=== PATIENT | female | born 1940 | race Caucasian/White ===

== ENCOUNTER 2017-08-26 08:03 | Inpatient (IN) ==
[2017-08-12 12:52] LABS: Basophils # 0.1 10*3/uL (0.0-0.2); Basophils % 0.8 % (0.0-0.8); Eosinophils # 0.1 10*3/uL (0.0-0.87); Eosinophils % 0.9 % (0.00-10.9); Hematocrit 41.5 VOL% (35.7-47.0); Hemoglobin 13.5 GM/DL (12.0-16.0); Immature Granulocytes % 0.6 %; Immature Granulocytes Absolute 0.05 #; Lymphocytes # 3.2 10*3/uL (1.4-4.0); Lymphocytes % 36.6 % (21.3-54.2); Mean Corpuscular HGB Conc 32.5 GM/DL (32-36); Mean Corpuscular Hemoglobin 30 PG (27-34); Mean Corpuscular Volume 91.6 FL (87-102); Mean Platelet Volume 10.5 FL (9.6-12.0); Monocytes # 0.8 10*3/uL (0.11-0.8); Monocytes % 8.8 % (1.7-12.7); Neutrophils # 4.5 10*3/uL (1.4-7.4); Neutrophils % 52.3 % (38.7-73.9); Platelet Count 243 T/CUMM (130-400); Red Blood Count 4.53 MC/CUMM (3.8-5.5); Red Cell Distribution Width 14.3 % (9.3-17.3); White Blood Count 8.7 T/CUMM (4-12)
[2017-08-12 13:19] LABS: Bilirubin,Total 0.5 MG/DL (0.2-1.0); Calcium 10.2 MG/DL (8.5-10.1); Osmolality,Calculated 275.5 MOS/KG (273-304); Potassium 3.6 MMOL/L (3.5-5.1); Total Protein 7.6 G/DL (6.4-8.3)
[~2017-08-26 08:03] MED LIST: cefTRIAXone 1,000 MG in SYRINGE 1 EACH IV ONE
[2017-08-26] MEDS ORDERED: SCOPOLAMINE 1.5 MG PATCH TRANSDERM ONE ×2 (08:42→09:37)
[2017-08-26] MEDS ORDERED: FAMOTIDINE 20 MG TABLET PO ONE (08:42)
[2017-08-26] MEDS ORDERED: DIAZEPAM 5 MG TABLET PO ONE (08:42)
[2017-08-26] MEDS ORDERED: LACTATED RINGERS 1,000 ML IV SCH (09:00)
[2017-08-26] MEDS ORDERED: DIAZEPAM 5 MG TABLET ONE (09:37)
[2017-08-26] MEDS ORDERED: cefTRIAXone 1,000 MG VIAL ONE (09:37)
[2017-08-26] MEDS ORDERED: FAMOTIDINE 20 MG TABLET ONE (09:37)
[2017-08-26] MEDS: SODIUM CHLORIDE 0.9% 1,000 ML IV SCH ×2 (10:10→20:55)
[2017-08-26] MEDS ORDERED: BUPIVACAINE 0.5% 50 ML VIAL ONE (15:17)
[2017-08-26] MEDS ORDERED: ONDANSETRON 4 MG/2 ML VIAL IV PRN ×2 (15:18→15:40)
[2017-08-26] MEDS ORDERED: LACTULOSE 20 GM/30 ML UDCUP PO PRN (15:18)
[2017-08-26] MEDS ORDERED: PROMETHAZINE 25 MG/1 ML VIAL IM PRN (15:18)
[2017-08-26] MEDS ORDERED: MORPHINE 10 MG/1 ML VIAL IV PRN (15:18)
[2017-08-26 15:22] LABS: Apearance,Urine CLEAR (Clear); Bilirubin,Urine Negative (Negative); Blood, Urine Negative (Negative); Glucose,Urine (UA) Negative (Negative); Ketones,Urine 5 mg/dL (Negative); Nitrite,Urine Negative (Negative); Protein,Urine Negative; RBC,Urine <1 /HPF (0-4); Urine Color Straw (Yellow); Urine Specific Gravity 1.005 (1.001-1.035); Urine Urobilinogen < 2.0 EU/DL (0.2-1.0)
[2017-08-26] MEDS ORDERED: diphenhydrAMINE 50 MG/1 ML VIAL IV PRN (15:22)
[2017-08-26] MEDS ORDERED: SIMETHICONE CHEW 80 MG TABLET PO PRN (15:23)
[2017-08-26] MEDS ORDERED: MORPHINE 10 MG/1 ML VIAL ONE (15:40)
[2017-08-26] MEDS ORDERED: ONDANSETRON 4 MG/2 ML VIAL ONE ×2 (15:40→15:49)
[2017-08-26] MEDS: MORPHINE 10 MG/1 ML VIAL IV PRN ×3 (15:45→15:55)
[2017-08-26] MEDS ORDERED: SEVOFLURANE 1 UNIT/15 MINUTE INH ONE (15:47)
[2017-08-26] MEDS ORDERED: PROPOFOL 200 MG/20 ML VIAL IV ONE (15:47)
[2017-08-26] MEDS ORDERED: MIDAZOLAM 2 MG/2 ML VIAL ONE (15:48)
[2017-08-26] MEDS ORDERED: SUFentanil 50 MCG/ML AMP ONE (15:48)
[2017-08-26] MEDS ORDERED: ROCURONIUM 100 MG/10 ML VIAL IV ONE (15:49)
[2017-08-26] MEDS ORDERED: SODIUM CHLORIDE 0.9% 1,000 ML IV ONE (15:49)
[2017-08-26] MEDS ORDERED: PHENYLEPHRINE 1 MG/10 ML SYRINGE IV ONE (15:49)
[2017-08-26] MEDS ORDERED: DEXAMETHASONE 10 MG/1 ML VIAL ONE (15:49)
[2017-08-26] MEDS ORDERED: HYDROmorphone 2 MG/1 ML VIAL ONE (15:59)
[2017-08-26] MEDS: HYDROmorphone 2 MG/1 ML VIAL IV PRN ×2 (16:00→16:05)
[2017-08-26 17:57] LABS: Basophils % 0.3 % (0.0-0.8); Hematocrit 36.1 VOL% (35.7-47.0); Hemoglobin 11.8 GM/DL (12.0-16.0); Immature Granulocytes % 0.5 %; Immature Granulocytes Absolute 0.07 #; Lymphocytes # 0.7 10*3/uL (1.4-4.0); Lymphocytes % 4.7 % (21.3-54.2); Mean Corpuscular HGB Conc 32.7 GM/DL (32-36); Mean Corpuscular Hemoglobin 30 PG (27-34); Mean Corpuscular Volume 92.6 FL (87-102); Mean Platelet Volume 10.4 FL (9.6-12.0); Monocytes # 0.7 10*3/uL (0.11-0.8); Monocytes % 4.7 % (1.7-12.7); Neutrophils # 12.9 10*3/uL (1.4-7.4); Neutrophils % 89.8 % (38.7-73.9); Platelet Count 221 T/CUMM (130-400); Red Cell Distribution Width 13.5 % (9.3-17.3); White Blood Count 14.4 T/CUMM (4-12)
[2017-08-26 18:21] LABS: Calcium 8.4 MG/DL (8.5-10.1); Osmolality,Calculated 286.1 MOS/KG (273-304); Potassium 3.6 MMOL/L (3.5-5.1)
[2017-08-26] MEDS: DOCUSATE SODIUM 100 MG CAPSULE PO SCH (20:43)
[2017-08-26] MEDS: ACETAMINOPHEN 325 MG TABLET PO SCH ×2 (20:48→20:54)
[2017-08-26 21:41] LABS: Lymphocytes 6 % (20-55); Segmented Neutrophils 93 % (50-85); Total Cells Counted 100
[2017-08-26 21:42] LABS: Hypochromasia 1+; Platelet Estimate Adequate; Tear Drop Cells Slight
[2017-08-26] MEDS: hydrALAZINE 25 MG TABLET PO SCH (22:43)
[2017-08-27] MEDS: ACETAMINOPHEN 325 MG TABLET PO SCH ×4 (04:58→20:32)
[2017-08-27] MEDS: SODIUM CHLORIDE 0.9% 1,000 ML IV SCH ×4 (05:07→20:31)
[2017-08-27 05:52] LABS: Basophils % 0.4 % (0.0-0.8); Eosinophils % 0.2 % (0.00-10.9); Hematocrit 35.3 VOL% (35.7-47.0); Hemoglobin 11.3 GM/DL (12.0-16.0); Immature Granulocytes % 0.4 %; Immature Granulocytes Absolute 0.04 #; Lymphocytes # 1.9 10*3/uL (1.4-4.0); Lymphocytes % 16.6 % (21.3-54.2); Mean Corpuscular Hemoglobin 30 PG (27-34); Mean Corpuscular Volume 93.6 FL (87-102); Mean Platelet Volume 10.3 FL (9.6-12.0); Monocytes % 8.6 % (1.7-12.7); Neutrophils # 8.3 10*3/uL (1.4-7.4); Neutrophils % 73.8 % (38.7-73.9); Platelet Count 198 T/CUMM (130-400); Red Blood Count 3.77 MC/CUMM (3.8-5.5); Red Cell Distribution Width 13.6 % (9.3-17.3); White Blood Count 11.2 T/CUMM (4-12)
[2017-08-27 06:08] LABS: Calcium 7.8 MG/DL (8.5-10.1); Osmolality,Calculated 285.1 MOS/KG (273-304); Potassium 4.2 MMOL/L (3.5-5.1)
[2017-08-27] MEDS ORDERED: CALCIUM GLUCONATE 2,000 MG in SODIUM CHLORIDE 0.9% 100 ML IV ONE (09:00)
[2017-08-27] MEDS: PANTOPRAZOLE 40 MG TABLET PO SCH (09:23)
[2017-08-27] MEDS: hydrALAZINE 25 MG TABLET PO SCH ×2 (09:23→20:32)
[2017-08-27] MEDS: DOCUSATE SODIUM 100 MG CAPSULE PO SCH ×2 (09:26→20:32)
[2017-08-28] MEDS: ACETAMINOPHEN 325 MG TABLET PO SCH ×4 (03:17→20:57)
[2017-08-28] MEDS: SODIUM CHLORIDE 0.9% 1,000 ML IV SCH ×2 (06:08→22:05)
[2017-08-28] MEDS: PANTOPRAZOLE 40 MG TABLET PO SCH (08:43)
[2017-08-28] MEDS: hydrALAZINE 25 MG TABLET PO SCH ×2 (08:44→20:57)
[2017-08-28] MEDS: DOCUSATE SODIUM 100 MG CAPSULE PO SCH ×2 (08:44→20:57)
[2017-08-28] MEDS ORDERED: BISACODYL 10 MG SUPP RECTAL ONE (09:00)
[2017-08-28] MEDS: ALBUTEROL/IPRATROPIUM 3 ML NEB RESP TX SCH ×4 (09:06→20:02)
[2017-08-28 13:09] LABS: Calcium 8.3 MG/DL (8.5-10.1); Osmolality,Calculated 277.5 MOS/KG (273-304)
[2017-08-29] MEDS: ALBUTEROL/IPRATROPIUM 3 ML NEB RESP TX SCH ×4 (00:23→12:23)
[2017-08-29] MEDS: ACETAMINOPHEN 325 MG TABLET PO SCH ×2 (03:14→10:04)
[2017-08-29] MEDS: PANTOPRAZOLE 40 MG TABLET PO SCH (10:04)
[2017-08-29] MEDS: hydrALAZINE 25 MG TABLET PO SCH (10:04)
[2017-08-29] MEDS: DOCUSATE SODIUM 100 MG CAPSULE PO SCH (10:05)
[2017-08-29 10:52] VITALS: BP 169/78
== END 2017-08-29 11:50 | disposition home or self-care (01) | DRG 658 ==
LOC: N.OR 08:03 → N.SDSINP 08:05 → N.5E 17:00
PROVIDERS: ADMIT Surgery; ATTEND Surgery